=== PATIENT | female | born 1945 | race Caucasian/White ===

== ENCOUNTER 2021-07-29 21:31 | Observation (INO) ==
[2021-07-30] MEDS ORDERED: Ondansetron 4 MG/2 ML VIAL IVP PRN (00:18)
[2021-07-30] MEDS ORDERED: Melatonin 3 MG TABLET PO PRN (00:18)
[2021-07-30] MEDS ORDERED: Naloxone 0.4 MG/ML INJ IVP PRN (00:18)
[2021-07-30] MEDS ORDERED: Acetaminophen 325 MG TABLET PO PRN (00:18)
[2021-07-30] MEDS ORDERED: Dextrose Gel 15 GM/37.5 ML TUBE PO PRN ×2 (00:20)
[2021-07-30] MEDS ORDERED: D5% in Water 1,000 ML IVC PRN (00:20)
[2021-07-30] MEDS ORDERED: *HR* Dextrose 50 % in Water (Syg) 50 ML SYRINGE IVP PRN (00:20)
[2021-07-30 05:58] LABS: Basophils % 0.4 %; Eosinophils # 0.1 K/mcL (0.0-0.6); Hemoglobin 10.3 g/dL (11.5-15.4); Immature Granulocytes % 0.4 % (0-4); Lymphocytes # 1.4 K/mcL (0.6-4.6); Lymphocytes % 19.5 %; Mean Corpuscular HGB Conc 32.2 g/dL (31.6-35.5); Mean Corpuscular Hemoglobin 31.1 pg (28.0-33.3); Mean Corpuscular Volume 96.7 fL (83.0-100.0); Mean Platelet Volume 10.5 fL (9.4-12.4); Monocytes # 0.5 K/mcL (0.0-1.3); Monocytes % 6.5 %; Neutrophils # 5.1 K/mcL (1.6-8.9); Platelet Count 234 K/mcL (140-400); Red Blood Count 3.31 M/mcL (3.82-4.97); Red Cell Distribution Width 16.7 % (11.5-14.5); Segmented Neutrophils % 72.2 %; White Blood Count 7.1 K/mcL (4.3-11.1)
[2021-07-30 06:05] LABS: Activated Partial Thrombo Time 31.2 Seconds (26.0-36.0); INR 1.3; Prothrombin Time 14.9 Seconds (9.4-12.1)
[2021-07-30 06:17] LABS: Albumin 2.8 g/dL (3.5-5.7); Albumin/Globulin Ratio 1.2 (1.1-2.2); Bilirubin,Total 0.4 mg/dL (0.3-1.0); Calcium 7.4 mg/dL (8.6-10.3); Globulin 2.4 g/dL (2.4-3.5); Potassium 4.1 mEq/L (3.5-5.1); Total Protein 5.2 g/dL (6.4-8.9)
[2021-07-30 06:44] LABS: Toxic Granulation Present (Not Present)
[2021-07-30 06:45] LABS: Platelet Estimate Normal (Normal)
[2021-07-30] MEDS: Insulin LISPRO 300 UNITS/3 ML VIAL SUBQ SCH ×3 (09:00→17:10)
[2021-07-30] MEDS ORDERED: Furosemide 20 MG/2 ML VIAL IVP SCH (09:00)
[2021-07-30] MEDS ORDERED: dexAMETHasone 4 MG TABLET PO SCH (11:00)
[2021-07-30] MEDS ORDERED: Tiotropium 10 INH DOSE IH SCH (11:00)
[2021-07-30] MEDS ORDERED: Aspirin Enteric Coated 81 MG Tablet PO SCH (11:00)
[2021-07-30] MEDS ORDERED: Multivit/Ca/Min/Fe/FA 1 TAB TABLET PO SCH (11:15)
[2021-07-30] MEDS ORDERED: Budesonide/Formoterol 80/4.5 1 PUFF INH IH SCH (11:15)
[2021-07-30] MEDS ORDERED: Ipratropium 1 PUFF INHALER IH ONE (14:50)
[2021-07-30] MEDS: Ipratropium 1 PUFF INHALER IH SCH ×2 (14:54→22:18)
[2021-07-30 15:58] VITALS: BP 92/67; PULSE 75; RESP 16; TEMP 97.4
[2021-07-30 16:22] VITALS: O2SAT 94
[2021-07-30] MEDS ORDERED: carvediloL 6.25 MG TABLET PO SCH (17:00)
[2021-07-30] MEDS ORDERED: Melatonin 3 MG TABLET PO SCH (21:00)
[2021-07-30] MEDS ORDERED: QUEtiapine Fumarate 25 MG TABLET PO SCH (21:00)
[2021-07-30] MEDS ORDERED: Apixaban 5 MG TABLET PO SCH (21:00)
== END 2021-07-30 19:25 | disposition home or self-care (01) ==
LOC: INPGRE
PROVIDERS: ADMIT Family Medicine; ATTEND Family Medicine